=== PATIENT | female | born 1975 ===

== ENCOUNTER → 2017-11-11 | Day surgery (SDC) | payer OTHER ==
[~2017-11-11] MED LIST: TAMOXIFEN CITRA20 MG
== END | disposition home or self-care (01) ==
LOC: EDSTATUS 11-04 08:00 → ADM 11-04 08:00 → SURH 11-07 07:00 → EDSTATUS 11-07 08:00 → SURH 07:45 → O/R 07:45 → CIR.AMB 08:00
DX: C50.911 Malignant neoplasm of unspecified site of right female breast (principal); N65.1 Disproportion of reconstructed breast; E65 Localized adiposity; Z90.11 Acquired absence of right breast and nipple

== ENCOUNTER 2019-07-09 06:10 | Day surgery (SDC) | payer OTHER ==
[~2019-07-09 06:10] MED LIST changes: +LEVOTHYROXINE25 MCG
== END 2019-07-09 11:55 | disposition home or self-care (01) ==
LOC: CIR.AMB 06:10
PROVIDERS: Plastic Surgery
PROC: 0HQWXZZ Repair Right Nipple, External Approach (ICD-10-PCS; principal; 2019-07-09 07:00)
DX: C50.911 Malignant neoplasm of unspecified site of right female breast (principal); Z90.11 Acquired absence of right breast and nipple

== ENCOUNTER 2019-07-22 12:23 | Emergency (ER) | payer OTHER ==
[~2019-07-22] VITALS: Ht 160 cm; Wt 61.2 kg
== END 2019-07-22 16:22 | disposition home or self-care (01) ==
LOC: ER 12:23
DX: T82.514A Breakdown (mechanical) of infusion catheter, initial encounter (principal)